=== PATIENT | male | born 1985 | race Caucasian/White ===

== ENCOUNTER 2022-08-27 14:29 | Observation (INO) ==
[2022-08-27 16:03] LABS: Amorphous Crystals,Urine Occasional /HPF (Few); Calcium Oxalate Crystals,Urine Occasional /HPF (Few); Hyaline Casts,Urine 5 /LPF (0-3); Mucus,Urine Occasional /LPF (Occasional); RBC,Urine 60 /HPF (0-4); Squamous Epithelial Cell,Urine Occasional /HPF (0-10); Urine Appearance Clear (Clear); Urine Color Yellow (Yellow)
[2022-08-27 16:05] LABS: Barbiturates Screen,Urine Negative (Negative); Benzodiazepines Screen,Urine Negative (Negative); Cannabinoid Screen,Urine Positive (Negative); Opiate Screen,Urine Negative (Negative); Phencyclidine Screen,Urine Negative (Negative)
[2022-08-27 16:07] LABS: Bilirubin,Urine Moderate mg/dL (Negative); Blood, Urine Negative (Negative); Glucose,Urine (UA) Negative (Negative); Ketones,Urine Negative (Negative); Nitrite,Urine Negative (Negative); Protein,Urine Negative (Negative); Urine Urobilinogen 0.2 eU/dL (<2.0)
[2022-08-27 16:20] LABS: Basophils % 0.3 % (0.0-0.8); Eosinophils # 0.2 10*3/uL (0.0-0.87); Hematocrit 45.1 VOL% (42.0-52.0); Immature Granulocytes % 0.5 %; Immature Granulocytes Absolute 0.04 #; Lymphocytes # 1.4 10*3/uL (1.4-4.0); Lymphocytes % 17.9 % (21.2-54.2); Mean Corpuscular Volume 82.1 FL (87-102); Mean Platelet Volume 9.8 FL (9.6-12.0); Monocytes # 0.9 10*3/uL (0.11-0.8); Neutrophils % 68.3 % (38.7-73.9); Platelet Count 446 T/CUMM (130-400); Red Blood Count 5.49 MC/CUMM (3.8-5.5); Red Cell Distribution Width 17.2 % (9.3-17.3)
[2022-08-27 16:30] LABS: INR 1.9; PT Patient Result 20.3 SECS (10.1-12.1)
[2022-08-27 16:49] LABS: Albumin 2.4 G/DL (3.4-5.0); Bilirubin,Total 7.4 MG/DL (0.20-1.00); Calcium 8.6 MG/DL (8.5-10.1); Osmolality,Calculated 272.7 MOS/KG (273-304); Potassium 3.6 MMOL/L (3.5-5.1); Total Protein 7.7 G/DL (6.4-8.2)
[2022-08-27 17:22] LABS: HIV Antigen/Antibody Result Nonreactive (Nonreactive)
[2022-08-27 17:26] LABS: Hepatitis B Core IgM Quant 1.09 Index; Hepatitis B Surface Ag Quant > 1000.00 Index; Hepatitis C Virus Ab Quant > 11.00 Index; Hepatitis C Virus Ab Result Reactive (NonReactive)
[2022-08-27 17:41] LABS: Hepatitis B Surface Ag Result Reactive (NonReactive)
[2022-08-27] MEDS ORDERED: METOPROLOL SUCCINATE XL 25 MG TABLET PO ONE (18:48)
[2022-08-27] MEDS ORDERED: NICOTINE 21 MG/24 HR PATCH TRANSDERM PRN (19:12)
[2022-08-27] MEDS ORDERED: ONDANSETRON 4 MG/2 ML VIAL IV PRN (19:12)
[2022-08-27] MEDS ORDERED: DOCUSATE SODIUM 100 MG CAPSULE PO PRN (19:12)
[2022-08-27] MEDS ORDERED: hydrALAZINE 20 MG/1 ML VIAL IV PRN (19:12)
[2022-08-27] MEDS: DEXTROSE 5% NACL 0.45% 1,000 ML IV SCH (21:53)
[2022-08-28 04:55] LABS: PT Patient Result 12.3 SECS (10.1-12.1)
[2022-08-28 04:56] LABS: INR 1.1
[2022-08-28 05:22] LABS: Albumin 2.3 G/DL (3.4-5.0); Bilirubin,Total 5.6 MG/DL (0.20-1.00); Calcium 8.4 MG/DL (8.5-10.1); Osmolality,Calculated 274.7 MOS/KG (273-304); Potassium 3.4 MMOL/L (3.5-5.1)
[2022-08-28] MEDS: MULTIVITAMIN (CENTRUM) TABLET PO SCH (09:05)
[2022-08-28] MEDS ORDERED: POTASSIUM CHLORIDE 20 MEQ TABLET PO ONE (13:49)
[2022-08-28] MEDS: DEXTROSE 5% NACL 0.45% 1,000 ML IV SCH (14:17)
[2022-08-29] MEDS: DEXTROSE 5% NACL 0.45% 1,000 ML IV SCH (04:46)
[2022-08-29 07:48] LABS: INR 1.1; PT Patient Result 11.6 SECS (10.1-12.1)
[2022-08-29 08:05] LABS: Albumin 2.2 G/DL (3.4-5.0); Bilirubin,Total 4.3 MG/DL (0.20-1.00); Calcium 8.4 MG/DL (8.5-10.1); Osmolality,Calculated 277.4 MOS/KG (273-304); Potassium 3.5 MMOL/L (3.5-5.1); Total Protein 6.9 G/DL (6.4-8.2)
[2022-08-29] MEDS: MULTIVITAMIN (CENTRUM) TABLET PO SCH (08:26)
[2022-08-29 08:37] VITALS: BP 135/86
== END 2022-08-29 12:54 | disposition home or self-care (01) ==
LOC: N.EDINP 14:29 → N.ED 14:29 → N.2W 08-28 08:19
PROVIDERS: ADMIT Hospitalist; ATTEND Hospitalist